=== PATIENT | male | born 1965 | race Caucasian/White ===

== ENCOUNTER 2017-01-19 06:27 | Day surgery (SDC) | payer OTHER ==
--- NOTE | 2017-01-16 11:45 | HP ---
DATE OF CLINIC: 01/03/2017 EMMETT SAWANT : 1965 PLANNED PROCEDURE: Right Knee Arthroscopic Partial Medial Meniscectomy DATE OF SURGERY: January 19, 2017 SURGEON: Alli Barnett M.D. HISTORY OF PRESENT ILLNESS Emmett Sawant is a 51 year old male. * Medication list reviewed with patient allergy list reviewed with patient. * Has not tried NSAIDS * Has not tried Physical Therapy * Has not tried Injections This is a 51-year-old gentleman with complaints of right knee pain since August 2016. He sustained a twisting injury and has had problems with the knee since that time. He has had multiple falls. Part of this is because of a seizure disorder, but he says the right knee tends to give way. He rates his pain at 6/10. He localizes it to the anterior portion of the knee, primarily along the medial joint line. He endorses mechanical symptoms as well. Prior to August, he did not have any significant complaints in this knee. He cannot take anti-inflammatories because of interactions with some of his other medications. He has not had physical therapy or any injections. After discussion and review of treatment options, both operative and non-operative, he has elected to proceed with surgery and presents today preoperatively. His past medical history is significant for seizure disorder, as well as other issues, as charted. CURRENT MEDICATION * Adult Aspirin EC Low Strength 81 MG Tablet Delayed Release 1 once a day 0 days, 0 refills * Advocate Insulin Pen [place] 31G X 5 MM Miscellaneous 1 once a day- any brand is okay, 30 days, 3 refills * AmLODIPine Besylate 5 MG Tablet 1 once a day 0 days, 0 refills * Citalopram Hydrobromide 40 MG Tablet 1 once a day, 30 days, 5 refills * Epclusa 400-100 MG Tablet 1 once a day 0 days, 0 refills * Hepatitis Support Miscellaneous as directed New Hepatitis medication unknown name, 0 days, 0 refills * HumuLIN R 100 UNIT/ML Solution SS:150-200= 3 [id number]= 6 [id number]= 9 -774=60 [id number]= 15 [id number]= 18 units> 450 call provider, 30 days, 5 refills * LaMICtal 25 MG Tablet 1 twice a day 0 days, 0 refills * Lantus SoloStar 100 UNIT/ML Solution Pen-injector Inject 30 units every morning, 30 days, 11 refills * Lipitor 80 MG Tablet 1 once a day 0 days, 0 refills * Xcnqwzxe-Dpuuaeleo-DD 3.5-29578-0 Solution Instill 5 drops twice daily to left ear x 7 days, 7 days, 0 refills * Neurontin 300 MG Capsule three times a day, 30 days, 11 refills * OxyCODONE HCl 5 MG Tablet four times a dayfill date 12/09/2016, 30 days, 0 refills * RaNITidine HCl 300 MG Tablet 1 once a day, 30 days, 5 refills * TraZODone HCl 100 MG Tablet as directed- Take 2-3 tabs as needed for insomnia, 30 days, 2 refills * Viagra 100 MG Tablet Take 1/2 -1 tab 30 minutes- 4 hours before intercourse, 30 days, 0 refills PAST MEDICAL/SURGICAL HISTORY Reported: Medical: Cholesterol problems. A previous fracture left side ribs. Diagnoses: Hypertension. Hepatitis, C virus. Diabetes mellitus. Epilepsy and recurrent seizures. Depression Anxiety disorder NOS Surgical: * Orthopedic surgery hands, toe amputations craniotomy-03/20/11 SOCIAL HISTORY Behavioral: Caffeine use Ice coffee 2-3 times monthly, chewing tobacco 1 can every week, and non-smoker never smoked. Smoking status: Never smoker. Alcohol: Alcohol 2-4 beers a week. Habits: Not exercising regularly. Home Environment: Lives alone. Education: Education history [employer] at [employer] [employer]. Work: Occupation disabled. Marital: Never , no children and single. ALLERGIES * No Known Allergies FAMILY HISTORY Father 77 years old Mother 76 years old No known prostate or colon cancer Maternal: Cancer breast Blood pressure father REVIEW OF SYSTEMS No recent constitutional symptoms to include fevers and chills. No recent cardiovascular symptoms to include chest pain or palpitations. No recent respiratory symptoms to include shortness of breath or recent infections. PHYSICAL FINDINGS * Vitals taken 01/03/2017 01:38 pm BP-Sitting R 94/54 mmHg BP Cuff Size Regular Pulse Rate-Sitting 91 bpm Temp-Oral 98.1 F Height 69.5 in Weight 220 lbs Body Mass Index 32.0 kg/m2 Body Surface Area 2.16 m2 Pain Level 4 Ears, Nose, Throat: * ENT: normal. Lungs: * Clear to auscultation. Cardiovascular: Heart Rate and Rhythm: * Normal. Abdomen: * Normal. Neurological: Motor: * Dominant Hand = Right Hand. GENERAL: Patient is a well-developed, well-nourished male in no acute distress. He is awake, alert and conversant throughout the encounter. CARDIOVASCULAR: Intact peripheral pulses on bilateral lower extremities. No significant edema on inspection of bilateral lower extremities. NEUROLOGIC: Patient had intact coordinated composite motion of the bilateral lower extremities and sensation intact to light touch in all distributions of bilateral lower extremities. PSYCHIATRIC: Patient was oriented to person, place and time and displayed appropriate mood and affect during the encounter. SKIN: Exam of the skin on bilateral lower extremities showed no significant scars, lesions, rashes or masses. FOCUSED MUSCULOSKELETAL EXAM: GENERAL: Patient ambulates with mild antalgia on the right side. He has normal resting station of the hips, knees and ankles. RIGHT KNEE: On exam today, his knee shows a mild effusion. He has no erythema or ecchymosis. He does has some eschar over the front of his knee, which he attributes to falls when he has seizures. Pszxx-zp-xngqnz of the knee is from 0 - 120 degrees of flexion. He is stable to varus and valgus stress. He has negative anterior and posterior drawer. His patella is midline and he has a mildly positive patellar grind. Britney's maneuver results in both a catch and pain over the medial side of his knee. He is able to perform a straight leg raise. 5/5 strength in flexion and extension of the knee. Warm and well-perfused leg distally, with intact sensation and normal resting tone. IMAGING Review of x-rays shows no fractures or dislocations. Very mild arthrosis changes. Review of his MRI shows a bucket-handle tear of his medial meniscus, displaced in the central portion of the knee. ASSESSMENT 51-year-old gentleman with a right knee bucket-handle medial meniscus tear PREVIOUS TESTS * Test: CBC WITH DIFF Report Date: 12/20/2016 WBC 8.3 10*3/mL BASOPHIL 0.5 % RBC 3.55 10*6/uL Low NEUTROPHILS 70.9 % MCH 32.1 pg High MCHC 33.7 g/dL RDW 16.9 % High MCV 95.2 fL High PLATELET COUNT 102 10*3/mL Low IMM NEUT % 1.1 % High IMM NEUT # 0.1 10*3/mL MONOCYTES 14.0 % High EOSINOPHIL 1.6 % HCT 33.8 % HGB 11.4 g/L Low LYMPHOCYTE 11.9 % Low ANC 5.9 10*3/mL * Test: PROTHROMBIN TIME Report Date: 12/20/2016 PROTIME 11.4 s INR 1.09 * Test: AMMONIA Report Date: 12/20/2016 AMMONIA 35 umol/L * Test: COMPREHENSIVE METABOLIC PANEL Report Date: 12/20/2016 ALT/SGPT 33 U/L ALBUMIN 3.3 g/dL Low ALB/GLOB RATIO 0.6 Low BUN 14 mg/dL BUN/CREAT RATIO 16 CALCIUM 9.0 mg/dL GLUCOSE 47 mg/dL Low CREATININE 0.9 mg/dL SODIUM 135 meq/L POTASSIUM 3.7 meq/L CHLORIDE 103 meq/L CARBON DIOXIDE 25 meq/L ANION GAP 11 meq/L TOT PROTEIN 8.8 g/dL GLOBULIN 5.5 g/dL High BILI,TOTAL 0.9 mg/dL AST/SGOT 60 U/L High ALK PHOSPHATASE 266 U/L High GFR 88 THERAPY * Patient not eligible for fall risk assessment. PLAN * OTHER Lisinopril 20 MG TABS, 1 once a day, 30 days, 5 refills * Bucket-hndl tear of medial mensc, crnt injury, r knee, init Percocet 5-325 MG TABS, as directed Take 1-2 tablets every 4 hours as needed for pain, 14 days, 0 refills * Knee Arthroscopy (Right) with PMM CARE TEAM Ismael Duradn DPM Supervisor [employer] Arnold Harding MD Infectious Disease Estella Durand, DRY CLEANING MANAGER Family SURGICAL CONSENT We have discussed surgical options including right knee arthroscopic PMM and non-operative management. The patient was counseled in detail regarding the diagnosis, treatment options available, prognosis of each treatment option and the potential risks and complications. The risks of surgery include, but are not limited to, anesthetic , neurovascular complications, pulmonary embolism, deep vein thrombosis, wound dehiscence, failure of any or all of the discussed procedures, infection of the joint or surrounding soft tissue, need for revision surgery, chronic pain, limitations in activities of daily living, inability to return to work, and loss of normal range of motion or functional use of the extremity. There is the possibility of failure over time that may require additional operative or non-operative treatment. The patient acknowledged that there are a number of perioperative risks not mentioned here and would still like to proceed. The patient is aware of and understands these risks, and wishes to proceed with the proposed surgical procedure and other procedures as indicated at the time of surgery. We will have the patient see their PCP for a preoperative medical risk assessment. The preoperative instructions were reviewed with the patient and all questions were answered. PB/sg
[2017-01-19] MEDS ORDERED: IV START KIT ONE (06:42)
[2017-01-19] MEDS ORDERED: SODIUM CHLORIDE 0.9% 1,000 ML ONE (06:42)
[2017-01-19] MEDS ORDERED: CEFAZOLIN SODIUM 2 GRAM PREMIX 100 ML IV ONE (06:42)
[2017-01-19] MEDS ORDERED: CEFAZOLIN SODIUM 2 GRAM PREMIX 100 ML IV PRN (07:30)
[2017-01-19] MEDS ORDERED: DEXAMETHASONE SOD PHOS 4 MG/1 ML VIAL ONE (08:06)
[2017-01-19] MEDS ORDERED: ONDANSETRON 4 MG/2ML 2 ML VIAL ONE (08:06)
[2017-01-19] MEDS ORDERED: FENTANYL 100 MCG/2 ML VIAL ONE ×2 (08:06→09:33)
[2017-01-19] MEDS ORDERED: MIDAZOLAM HCL 1 MG/ML 2ML VIAL ONE (08:06)
[2017-01-19] MEDS ORDERED: PROPOFOL 20 ML IV ONE (08:06)
[2017-01-19] MEDS ORDERED: HYDRALAZINE HCL 20 MG/1 ML VIAL IV PRN (08:15)
[2017-01-19] MEDS ORDERED: HYDROMORPHONE HCL 1 MG/ML SYRINGE IV PRN ×2 (08:15→09:56)
[2017-01-19] MEDS ORDERED: MEPERIDINE 25 MG/ML SYRINGE IV PRN (08:15)
[2017-01-19] MEDS ORDERED: SODIUM CHLORIDE 0.9% 1,000 ML IV SCH (08:15)
[2017-01-19] MEDS ORDERED: ONDANSETRON 4 MG/2ML 2 ML VIAL IV PRN ×3 (08:15→09:56)
[2017-01-19] MEDS ORDERED: NALOXONE HCL 0.4 MG/ML VIAL IV PRN (08:15)
[2017-01-19] MEDS ORDERED: LABETALOL HCL 5 MG/ML 20ML VIAL IV PRN (08:15)
[2017-01-19] MEDS ORDERED: ATROPINE SULFATE 0.4 MG/1 ML VIAL IV PRN (08:15)
[2017-01-19] MEDS ORDERED: KETOROLAC TROMETHAMINE 30 MG/ML 1 ML VIAL ONE (09:13)
[2017-01-19] MEDS: FENTANYL 100 MCG/2 ML VIAL IV PRN ×2 (09:34→09:43)
--- NOTE | 2017-01-19 09:35 | PCMBPN ---
Brief Post Op Note: Date of Procedure: 01/19/17 Start Time: 0830 Preoperative Diagnosis: 1. RIGHT KNEE POSTERIOR MEDIAL MENISCUS TEAR Postoperative Diagnosis: 1. Same Procedure: Right Knee Arthroscopy, Posterior PMM Surgeon: Alli Barnett MD Assist:JORDON Hendricks Anesthesia: Bravo Acosta CRNA Findings: See above Condition: Stable Complications: None IV Fluids: 1500 mLs of LR Urine Output: 0 mLs Estimated Blood Loss: 5 mLs Tourniquet Time: 20min at 250mmHg Specimens: N/A Implants: None Drains: [N/A]
[2017-01-19] MEDS ORDERED: DIPHENHYDRAMINE HCL 50 MG/1 ML VIAL IV PRN (09:56)
[2017-01-19] MEDS ORDERED: ACETAMINOPHEN 325 MG TABLET PO PRN (09:56)
[2017-01-19] MEDS ORDERED: OXYCODONE/ACETAMINOPHEN 5/325 MG TABLET PO PRN (09:56)
[2017-01-19] MEDS ORDERED: LACTATED RINGERS 1,000 ML IV SCH (09:56)
[2017-01-19] MEDS ORDERED: OXYCODONE/ACETAMINOPHEN 5/325 MG TABLET ONE (10:24)
--- NOTE | 2017-01-19 11:26 | OP ---
Emmett SAWANT : 1965 [id number] DATE OF PROCEDURE: January 19, 2017 PREOPERATIVE DIAGNOSIS: Right knee medial meniscus tear. POSTOPERATIVE DIAGNOSIS: Right knee medial meniscus tear. PROCEDURE PERFORMED: RIGHT KNEE ARTHROSCOPY WITH PARTIAL MEDIAL MENISCECTOMY. SURGEON: Alli Barnett M.D. PLASTIC EXTRUDING MACHINE OPERATOR: Renan Duke P.A.-C. ANESTHESIA: Ranjit Acosta C.R.N.A. SPECIMENS: No material was sent to the laboratory. ESTIMATED BLOOD LOSS: 5 mL FLUIDS REPLACED: 1200 mL of crystalloid. TOURNIQUET TIME: 20 minutes at 250 mmHg. URINE OUTPUT: None. IMPLANTS: None. DRAINS: No drains. INDICATIONS: This is a 51-year-old male who complains of pain and mechanical symptoms in the right knee that have been increasing over time and have not responded to a course of nonoperative measures. Patient has an exam and imaging studies which are consistent with the above. Given failure to improve with nonoperative measures patient was consented for right knee arthroscopy with partial medial meniscectomy. The risks, benefits and alternatives were discussed at length with that patient and they elected to proceed with surgery. Informed consent was obtained and documented in the chart and the patient was placed on the schedule the first available convenience. DESCRIPTION OF PROCEDURE: The patient was identified in the preoperative holding area where they were marked with an indelible marker by the operating surgeon. Patient was taken to the operating room where they were placed in the supine position the operating room table. A general anesthesia was induced, perioperative antibiotics were administered and a well padded pre-calibrated nonsterile tourniquet was placed on the right upper thigh. Patient was prepped and draped in the usual sterile fashion for surgery. An operative time out was performed and confirmed by all members of the operative team confirming the patient identity, procedure to be performed and the laterally for that procedure. All necessary personnel, equipment and implants were in place and there were no safety concerns. The leg was elevated and exsanguinated using the Esmarch bandage and the tourniquet was inflated to 250 mmHg. A standard lateral portal was created and the 30 degree viewing arthroscope was inserted into the knee. Optics were directed anteromedially and a medial portal was localized and created in a standard fashion. A probe was inserted through this medial portal and used in completion of the diagnostic arthroscopy with the following findings: Complex tear of the medial meniscus involving most of the posterior horn which was displaced anteriorly and was irreparable. There was grade 2 and 3 chondromalacia over the medial femoral condyle. The lateral compartment was largely intact. The ACL and PCL were intact. The patellofemoral joint had no significant chondromalacia changes. There were no other loose bodies. Within the knee there was a significant amount of hypertrophy to the anterior fat pad which was debrided. After completion of diagnostic arthroscopy the probe was exchanged for an arthroscopic biter and this was used to resect back the medial meniscus to a stable rim. This was then exchanged for arthroscopic resector shaver which was used to complete the partial medial meniscectomy. At this point we felt that we had addressed the patient's intra-articular pathology and so the camera and instruments were removed from the knee. The portal sites were closed with #4-0 Nylons; 20 mL of 0.5% Marcaine was injected into the knee for perioperative analgesia. A sterile dressing of Xeroform, fluffs, ABDs, web roll and then an ALLYSON bandage from ankle to the thigh was applied. The tourniquet was deflated, the drapes were removed. The patient was awakened from anesthesia and extubated in the operating room without difficulty. Patient was transferred to a stretcher and taken postoperatively to the post anesthesia care unit in stable condition. There were no observed intraoperative complications during this procedure. Job [id number] Cc: [facility]
== END 2017-01-19 11:17 | disposition home or self-care (01) ==
LOC: SDC 06:27
PROVIDERS: ATTEND Orthopaedic Surgery
PROC: 0SBC4ZZ Excision of Right Knee Joint, Percutaneous Endoscopic Approach (ICD-10-PCS; principal; 2017-01-19)
DX: S83.211A Bucket-handle tear of medial meniscus, current injury, right knee, initial encounter (principal); M94.261 Chondromalacia, right knee; B19.20 Unspecified viral hepatitis C without hepatic coma; I10 Essential (primary) hypertension; E11.9 Type 2 diabetes mellitus without complications; G40.909 Epilepsy, unspecified, not intractable, without status epilepticus; X50.1XXA Overexertion from prolonged static or awkward postures, initial encounter; Z91.81 History of falling; Z79.82 Long term (current) use of aspirin; Z79.4 Long term (current) use of insulin; Z79.899 Other long term (current) drug therapy; Z79.891 Long term (current) use of opiate analgesic
CPT/HCPCS: 29881; J3010 ×3; A9270; J1885; J2250; J2405; J7030; J0690